=== PATIENT | female | born 1935 | race Caucasian/White ===

== ENCOUNTER → 2018-05-17 | Outpatient (CLI) | payer OTHER, SELFPAY ==
[~2018-05-17] MED LIST: ASPI325EC PO; FELO5CR PO; HYDACE5 PO; IBUP800 PO; LISI5 PO; OMEP20ER PO
[2018-05-18 13:57] LABS: Adenovirus F 40/41 Not Detected (NOT DETECT); Astrovirus Not Detected (NOT DETECT); Campylobacter Sp Not Detected (NOT DETECT); Cryptosporidium Not Detected (NOT DETECT); Cyclospora Cayetanensis Not Detected (NOT DETECT); E. Coli O157 Not Detected (NOT DETECT); Entamoeba Histolytica Not Detected (NOT DETECT); Enteroaggregative E. coli-EAEC Not Detected (NOT DETECT); Enteropathogenic E. coli-EPEC Not Detected (NOT DETECT); Enterotoxigenic E. coli-ETEC Not Detected (NOT DETECT); Giardia Lamblia Not Detected (NOT DETECT); Norovirus GI/GII Not Detected (NOT DETECT); Plesiomonas Shigelloides Not Detected (NOT DETECT); Rotavirus A Not Detected (NOT DETECT); Salmonella Sp Not Detected (NOT DETECT); Sapovirus Not Detected (NOT DETECT); Shiga Toxin-prod E. coli-STEC Not Detected (NOT DETECT); Shigella/Enteroin E. coli-EIEC Not Detected (NOT DETECT); Vibrio Cholerae Not Detected (NOT DETECT); Vibrio Sp Not Detected (NOT DETECT); Yersinia Enterocolitica Not Detected (NOT DETECT)
== END | disposition home or self-care (01) ==
LOC: LAB 11:49 → LAB SHORT 11:49 → LAB FUT 05-14 15:20
PROVIDERS: Hospitalist
DX: R19.7 Diarrhea, unspecified (principal)
CPT/HCPCS: 87507

== ENCOUNTER → 2018-06-01 | Outpatient (CLI) | payer OTHER, SELFPAY ==
[2018-06-01 14:38] LABS: Bun/Creatinine Ratio 20.1 (12.0-20.0); Calcium, Blood 8.7 mg/dL (8.5-10.1); Creatinine, Blood 0.95 mg/dL (0.40-1.00)
== END | disposition home or self-care (01) ==
LOC: LAB SHORT 13:16 → LAB 13:16
PROVIDERS: Hospitalist
DX: E87.6 Hypokalemia (principal)
CPT/HCPCS: 80048; 83735

== ENCOUNTER → 2020-08-03 | Outpatient (CLI) | payer MEDICARE ==
[~2020-08-03] MED LIST changes: +AMLO10 PO; +ATOR40TA PO; +Acetaminophen325 M1 PO; +CATAPRES0.1 MG PO; -FELO5CR PO; +Felodipine ER5 MG PO; +HYDCHL25 PO; +HYDRA25; +Lopressor 50 mg50 MG PO; +Nicoderm Cq1 EAC1 TOP; +PANT40 PO; +Plavix75 MG PO; +SODBIC650 PO
[2020-08-03 14:54] LABS: BASOPHILS ABSOLUTE AUTO 0.07 K/mm3 (0.00-0.23); BASOPHILS PERCENT AUTO 1 % (0-2); EOSINOPHILS ABSOLUTE AUTO 0.23 K/mm3 (0.00-0.68); EOSINOPHILS PERCENT AUTO 3 % (0-6); Hematocrit 38.8 % (33.0-51.0); Hemoglobin 12.4 g/dL (11.5-16.0); IMMATURE GRAN ABSOLUTE AUTO 0.04 K/mm3 (0.00-0.10); IMMATURE GRAN PERCENT AUTO 1 % (0-1); LYMPHOCYTES ABSOLUTE AUTO 2.58 K/mm3 (0.84-5.20); LYMPHOCYTES PERCENT AUTO 33 % (21-46); MONOCYTES ABSOLUTE AUTO 0.41 K/mm3 (0.16-1.47); MONOCYTES PERCENT AUTO 5 % (4-13); Mean Corpuscular HGB 30.5 pg (26.0-34.0); Mean Corpuscular Volume 95 fL (80-100); Mean Platelet Volume 10.2 fL (9.1-12.4); NEUTROPHILS ABSOLUTE AUTO 4.49 K/mm3 (1.96-9.15); NEUTROPHILS PERCENT AUTO 58 % (41-73); Platelet Count 316 K/mm3 (150-400); RDW Coefficient Variation 14.7 % (11.7-14.2); RDW Standard Deviation 51.4 fL (35.1-46.3); Red Blood Cell Count 4.07 M/mm3 (3.80-5.20); White Blood Cell Count 7.82 K/mm3 (4.00-11.30)
[2020-08-03 17:00] LABS: Albumin, Blood 3.6 g/dL (3.4-5.0); Albumin/Globulin Ratio 0.7 (0.8-1.8); Bilirubin, Total 0.2 mg/dL (0.1-1.0); Bun/Creatinine Ratio 18.5 (12.0-20.0); Calcium, Blood 8.9 mg/dL (8.5-10.1); Creatinine, Blood 1.08 mg/dL (0.40-1.00); Globulin, Blood 5.1 g/dL (2.2-4.0); Potassium, Blood 4.3 mmol/L (3.5-5.5); Total Protein, Blood 8.7 g/dL (6.4-8.2)
== END | disposition home or self-care (01) ==
LOC: LAB 13:46 → LAB SHORT 13:46
PROVIDERS: Hospitalist
DX: I12.9 Hypertensive chronic kidney disease with stage 1 through stage 4 chronic kidney disease, or unspecified chronic kidney disease (principal); N18.9 Chronic kidney disease, unspecified; N39.41 Urge incontinence
CPT/HCPCS: 80053; 83970; 85025; 87086; 87147

== ENCOUNTER 2020-08-24 09:19 | Day surgery (SDC) | payer MEDICARE ==
[~2020-08-24] VITALS: Ht 152.4 cm; Wt 57.6 kg
[~2020-08-24 09:19] MED LIST changes: -AMLO10 PO; -ATOR40TA PO; -Acetaminophen325 M1 PO; -HYDRA25; -Lopressor 50 mg50 MG PO; -Nicoderm Cq1 EAC1 TOP; -Plavix75 MG PO; -SODBIC650 PO
--- NOTE | 2020-08-24 10:17 | NUR ---
PATIENT ARRIVED TO THE [facility] AND TOLD THE RN THAT SHE FELL IN THE BARK OFF THE SIDEWALK ON HER WAY IN THIS MORNING. HER FELL ON HER LEFT ARM. JACKET WAS CLEANED OF BARK PIECES. GUARDING LEFT ARM. PATIENT STATED SHE DID NOT HIT HER HEAD.
--- NOTE | 2020-08-24 14:39 | NUR ---
PATIENT RETURNED FROM THE [facility] WITH BILATERAL GROIN ACCESSES CLOSED WITH ANGIOSEALS. LEFT RADIAL ACCESS CLOSED WITH TR BAND WTH 15 ML OF AIR IN PLACE AND A SECOND TR BAND WITH 10 ML OF AIR IN PLACE. PLETH TO THE LEFT RADIAL + WITH GOO WAVEFORM. PATIENT PLACED ON THE MONITOR AND CALL LIGHT IN REACH. VVS. AWAKES WITH MINIMAL STIMULATION. DOPPLER PULSES NOTED TO ALL EXCEPT THE LEFT DP. DR. TENORIO WILL UPDATE SON VIA PHONE.
--- NOTE | 2020-08-24 15:21 | NUR ---
PATIENT ASSISTED TO THE RIGHT SIDE WITH PILLOW SUPPORT BEHIND BACKA DN BETWEEN LEG. GROIN AREAS STRAIGHT AND LEFT WRIST STRAIGHT. CONTINUE TO MONITOR SITES AND VS WHILE PATIENT IS SLEEPING. NO C/O PAIN. CALL LIGHT IN REACH.
--- NOTE | 2020-08-24 15:46 | NUR ---
CALLED AND LEFT A MESSAGE WITH THE SON, JEFFERSON THAT THE PAITENT LIVES WITH. TO HAVE HIM CALL OR COME TO THE BEDSIDE FOR DR. TENORIO TO SPEAK WITH.
--- NOTE | 2020-08-24 16:31 | NUR ---
patient resting in bed . right and left femoral sites soft and nontender dressings D&I. There are [address] to left wristand forearm. sites stable.
--- NOTE | 2020-08-24 16:41 | NUR ---
right and left groin sites stable. removed 2 cc of air from each TR band to total a 7 cc air out from each. sites remain soft, no swelling, no hematoma.
--- NOTE | 2020-08-24 17:05 | NUR ---
dR Gerber HERE TO SPEAK TO PATIENT AND PATIEN'S SON
--- NOTE | 2020-08-24 17:34 | NUR ---
patient ambulated to rest room. tolerated well. voided x 1. bilateral groin sites remain stable. TR bands in place. 3 cc air removed from each
--- NOTE | 2020-08-24 17:40 | NUR ---
CONITUE TO REMOVE AIR FROM tr BAND. SITES CONTINUE TO BE STABLE.
--- NOTE | 2020-08-24 18:29 | NUR ---
PATIENT VERBALIZED UNDERSTANDING OF DISCHARGE INSTRUCTIONS AND PRECAUTIONS. HAS BEEN SITTING UP IN CHAIR AND BILATERAL GROIN SITES STABLE. DRESSINGS DRY AND INTACT. AIR HAS BEEN REMOVED FROM TR BANDS. IV SITE DCED WITH CATHETER INTACT. TR BANDS REMOVED LEFT RADIAL SITE WITHOUT SWELLING OR BLEEDING. CLOTH DOT AND LIGHT DRESSING APPLIED. WRIST BOARD PLACED TO LEFT WRIST. ARM SLING PLACED TO LEFT ARM. PATIENT TAKEN TO WAITING CAR VIA WHEELCAHIR. DISCHARGE INSTRUCTIONS AND PRECAUTIONS REVIEWED WITH SON. LEFT RADIAL DRESSING SITE REVIEWED WITH SON.
== END 2020-08-24 23:46 | disposition home or self-care (01) ==
LOC: MHTC 09:19
DX: I70.213 Atherosclerosis of native arteries of extremities with intermittent claudication, bilateral legs (principal); Z20.822 Contact with and (suspected) exposure to COVID-19
CPT/HCPCS: 36140; 37221; 75625; 75716; 76937; 99152; 99153; C1760; C1769; C1876; C1887; C1894; J1644; J2250; J3010; J7030; J7040; J7050; Q9967

== ENCOUNTER 2020-08-30 11:22 | Inpatient (IN) | payer MEDICARE ==
[~2020-08-30] VITALS: Ht 152.4 cm; Wt 57.7 kg
[2020-08-30 12:06] LABS: BASOPHILS ABSOLUTE AUTO 0.06 K/mm3 (0.00-0.23); BASOPHILS PERCENT AUTO 1 % (0-2); EOSINOPHILS ABSOLUTE AUTO 0.24 K/mm3 (0.00-0.68); EOSINOPHILS PERCENT AUTO 3 % (0-6); Hematocrit 32.1 % (33.0-51.0); Hemoglobin 10.5 g/dL (11.5-16.0); IMMATURE GRAN ABSOLUTE AUTO 0.03 K/mm3 (0.00-0.10); IMMATURE GRAN PERCENT AUTO 0 % (0-1); LYMPHOCYTES PERCENT AUTO 20 % (21-46); MONOCYTES ABSOLUTE AUTO 0.57 K/mm3 (0.16-1.47); MONOCYTES PERCENT AUTO 8 % (4-13); Mean Corpuscular HGB 30.8 pg (26.0-34.0); Mean Corpuscular HGB Conc 32.7 g/dL (31.5-36.5); Mean Corpuscular Volume 94 fL (80-100); Mean Platelet Volume 10.5 fL (9.1-12.4); NEUTROPHILS ABSOLUTE AUTO 5.13 K/mm3 (1.96-9.15); NEUTROPHILS PERCENT AUTO 68 % (41-73); Platelet Count 212 K/mm3 (150-400); RDW Coefficient Variation 14.6 % (11.7-14.2); RDW Standard Deviation 49.9 fL (35.1-46.3); Red Blood Cell Count 3.41 M/mm3 (3.80-5.20); White Blood Cell Count 7.53 K/mm3 (4.00-11.30)
[2020-08-30 12:26] LABS: Alanine Aminotransfer (ALT/SGP 13 U/L (12-78); Albumin, Blood 3.1 g/dL (3.4-5.0); Albumin/Globulin Ratio 0.6 (0.8-1.8); Alk Phos 78 U/L (50-136); Anion Gap 10 mmol/L (6-16); Aspartate Aminotrans (AST/SGOT 13 U/L (12-37); Bilirubin, Total 0.3 mg/dL (0.1-1.0); Blood Urea Nitrogen 23 mg/dL (8-24); Bun/Creatinine Ratio 19.8 (12.0-20.0); CO2, Blood 17 mmol/L (21-32); Calcium, Blood 7.8 mg/dL (8.5-10.1); Chloride, Blood 111 mmol/L (98-108); Creatinine, Blood 1.16 mg/dL (0.40-1.00); Ethanol (Alcohol), Blood, Med <3 mg/dL; Globulin, Blood 4.8 g/dL (2.2-4.0); Glomerular Filtration Rate 47 (60-); Glucose, Blood 120 mg/dL (70-99); Potassium, Blood 3.1 mmol/L (3.5-5.5); Sodium, Blood 138 mmol/L (136-145); Total Protein, Blood 7.9 g/dL (6.4-8.2)
[2020-08-30 15:21] LABS: International Normalized Ratio 1.01; Prothrombin Time Results 10.9 Sec (9.7-11.5)
--- NOTE | 2020-08-30 17:27 | NUR ---
Echocardiogram performed by Roz Mercado under my supervision.
--- NOTE | 2020-08-30 17:28 | NUR ---
DR SOTO NOTIFIED OF BP OF 201/64, NEW ORDERS IN PLACE, WILL MEDICATE PER EMAR SOON RELEASED FROM PHARMACY
--- NOTE | 2020-08-30 18:36 | NUR ---
SHIFT SUMMARY PT AXO, PLEASANT AND COOPERATIVE WITH CARE. ADMIT THIS SHIFT. BP NOTED, SEE PRIOR NOTE. PT MEDICATED FOR BP, 177/60 AT THIS TIME. RUNNING NORMAL SINUS RHYTHM AT THIS TIME PER MOLDER MACHINE. IV PATENT AND SALINE LOCKED. PT SITTING UP IN BED EATING DINNER AT THIS TIME. BED IN LOW POSITION, CALL LIGHT WITHIN REACH. BED ALARM ON.
--- NOTE | 2020-08-30 19:00 | NUR ---
ASSUMED CARE RECEIVED REPORT FROM ROLANDO OLIVIA. PT RESTING, IN NAD. NO ACUTE NEEDS ASSESSED AT THIS TIME. CALL LIGHT, POSSESIONS IN REACH, BED IN LOW POSITION WITH ALARMS ON.
--- NOTE | 2020-08-30 22:05 | NUR ---
SPOKE TO DR. MURPHY TO CLARIFY EXISTING HYDRALAZINE ORDERS; NEW ORDERS RECEIVED.
--- NOTE | 2020-08-30 23:00 | NUR ---
SPOKE TO DR. MURPHY REGARDING PT'S UNCONTROLLED HTN. ORDERS RECEIVED.
[2020-08-31 05:27] LABS: BASOPHILS ABSOLUTE AUTO 0.07 K/mm3 (0.00-0.23); BASOPHILS PERCENT AUTO 1 % (0-2); EOSINOPHILS ABSOLUTE AUTO 0.34 K/mm3 (0.00-0.68); EOSINOPHILS PERCENT AUTO 5 % (0-6); Hematocrit 29.5 % (33.0-51.0); Hemoglobin 9.8 g/dL (11.5-16.0); IMMATURE GRAN ABSOLUTE AUTO 0.03 K/mm3 (0.00-0.10); IMMATURE GRAN PERCENT AUTO 0 % (0-1); LYMPHOCYTES ABSOLUTE AUTO 1.88 K/mm3 (0.84-5.20); LYMPHOCYTES PERCENT AUTO 26 % (21-46); MONOCYTES ABSOLUTE AUTO 0.56 K/mm3 (0.16-1.47); MONOCYTES PERCENT AUTO 8 % (4-13); Mean Corpuscular HGB 30.4 pg (26.0-34.0); Mean Corpuscular HGB Conc 33.2 g/dL (31.5-36.5); Mean Corpuscular Volume 92 fL (80-100); Mean Platelet Volume 10.5 fL (9.1-12.4); NEUTROPHILS ABSOLUTE AUTO 4.38 K/mm3 (1.96-9.15); NEUTROPHILS PERCENT AUTO 60 % (41-73); Platelet Count 246 K/mm3 (150-400); RDW Coefficient Variation 14.6 % (11.7-14.2); RDW Standard Deviation 48.6 fL (35.1-46.3); Red Blood Cell Count 3.22 M/mm3 (3.80-5.20); White Blood Cell Count 7.26 K/mm3 (4.00-11.30)
--- NOTE | 2020-08-31 05:45 | NUR ---
SOLDERING MACHINE SETTER SUMMARY PT RESTING, IN NAD. VS REVIEWED, PT HYPERTENSIVE, OTHER VS WNL. PRNs GIVEN ORDERED FOR SBP >160 AND > 180; WITH GOOD RESULTS. PT HAS BEEN SLEEPING THROUGHOUT MUCH OF THE NIGHT. NO FURTHER CHANGES IN NEURO STATUS NOTED FROM INITIAL ASSESSMENT, PT DENIES LEONG, NUMBNESS/TINGLING. PT UP TO BS AND PARTIAL BED BATH GIVEN THIS AM, PT TOLERATED WELL. NO CARDIAC EVENTS REPORTED OVERNIGHT, NO OTHER ACUTE CHANGES IN CONDITION NOTED. PT DENIES PAIN OR NEEDS AT THIS TIME. CALL LIGHT, POSSESSIONS IN REACH, BED IN LOW AND LOCKED POSITION WITH ALARMS ON. WILL CONTINUE TO PROVIDE CARE NEEDED UNTIL REPORT GIVEN TO ONCOMING RN.
[2020-08-31 05:54] LABS: Albumin, Blood 2.8 g/dL (3.4-5.0); Albumin/Globulin Ratio 0.6 (0.8-1.8); Bilirubin, Total 0.3 mg/dL (0.1-1.0); Bun/Creatinine Ratio 20.2 (12.0-20.0); Calcium, Blood 8.1 mg/dL (8.5-10.1); Creatinine, Blood 1.19 mg/dL (0.40-1.00); Globulin, Blood 4.4 g/dL (2.2-4.0); Potassium, Blood 3.8 mmol/L (3.5-5.5); Total Protein, Blood 7.2 g/dL (6.4-8.2)
[2020-08-31 11:18] LABS: Percent Saturation 20.5 % (15.0-50.0)
--- NOTE | 2020-08-31 16:57 | NUR ---
SHIFT SUMMARY PT A/O X3; PLEASANT AND COOPERATIVE WITH CARE. PT EXPERIENCES VERY SLIGHT L SIDE WEAKNESS DUE TO A STROKE. PT IS UNABLE TO SEE OBJECTS IN HER LEFT VISUAL FIELD WELL. WORKED WITH P.T/O.T./SPEECH TODAY. SPEECH RECOMMENDED NPO FOLLOWING A SWALLOW EVAL AND WILL RE-EVALUATE TOMORROW. PT HYPERTENSIVE AND TREATED X2 PER EMR. BEEN RESTING COMFORTABLY IN BED FOR THE MAJORITY OF THE DAY. CALL LIGHT IN REACH.
--- NOTE | 2020-08-31 19:00 | NUR ---
ASSUMED CARE RECEIVED REPORT FROM ROLANDO RAMÍREZ. PT ASLEEP, IN NAD, AROUSABLE TO VERBAL STIMULI. NO ACUTE NEEDS ASSESSED AT THIS TIME. CALL LIGHT, POSSESSIONS IN REACH, BED IN LOW POSITION WITH ALARMS ON.
--- NOTE | 2020-08-31 21:24 | NUR ---
SPOKE TO SUMAYA LY REGARDING PT'S HTN AND NEED FOR NICOTINE REPLACEMENT. ORDERS RECEIVED.
--- NOTE | 2020-09-01 06:14 | NUR ---
KEY MAKER SUMMARY PT ASLEEP, IN NAD. VS REVIEWED, BP'S STABLE S/P ADMINISTRATION OF PRN LABETALOL. OTHER VS WNL. PT HAS BEEN SLEEPING T/O NIGHT, NO ACUTE CHANGES IN NEURO STATUS TO REPORT FROM SHIFT ASSESSMENT. NO C/O LEONG, NUMBNESS/TINGLING, NO FACIAL DROOP NOTED, SPEECH REMAINS WNL. NO CARDIAC EVENTS REPORTED; NO ACUTE EVENTS OVERNIGHT. DENIES NEEDS AT THIS TIME. CALL LIGHT, POSSESIONS IN REACH, BED IN LOW AND LOCKED POSITION WITH ALARMS ON. WILL CONTINUE TO PROVIDE CARE UNTIL REPORT GIVEN TO ONCOMING RN.
--- NOTE | 2020-09-01 18:46 | NUR ---
SHIFT SUMMARY PT ABLE TO MAKE NEEDS KNONW. PT ACCEPTING OF CARE. PT HAS HAD ELEVATED BP THROUGH OUT SHIFT. NOTIFIED OF THEM AND MADE CHANGES TO PT EMAR. SHE HAD PT HAD PRN HYDRALAZINE ONE TIME AND LABETALOL ONE TIME THIS SHIFT. SPEECH EVAL AND DIET ORDER CHANGED AND ABLE TO TAKE MEDS CRUSHED IN APPLESAUCE, NECATR THICK FLUIDS. PT 1 PERSON TRANSFER WITH FWW AND GAIT BELT. SHE IS CURENTLY SITTING IN CHAIR WATCHING TV.
--- NOTE | 2020-09-02 05:47 | NUR ---
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 She was able to sit up in chair for several hours & maintain position. She has harsh coarse cough nonproductive & has sats greater than 90% on room air. Uses home nebs tid.Has pacemaker since 2004 with functin checked every 6 months unknown rate or function. She had fall prior to admit & has lt arm edema & tenderness. Good air sealing technician & movement. on tele monitor SR. Hypertensive with prn IV rx given at beginning & end of shift with helpful effect. PT has poor dentation missing multiple teeth. aspiration precautions honey thick liquids.
--- NOTE | 2020-09-02 16:30 | NUR ---
SHIFT SUMMARY PATIENT DENIES PAIN, NAUSEA, AND SHORTNESS OF BREATH. PATIENT HAS OCCASSIONAL COUGH. SPEECH THERAPY ADVANCED PAT[facility], THIN LIQUIDS, NO STRAWS. PATIENT WORKED WITH PT, UP ONE ASSIST W/FWW TO BR OR BSC. PATIENT HAD SEVERAL LOOSE STOOLS THIS SHIFT BUT REPORTS THIS HAS BEEN A CHRONIC ISSUE FOR HER. EATING AND DRINKING WELL.
--- NOTE | 2020-09-03 04:39 | NUR ---
SHIFT SUMMARY PT HAS RESTED MOST OF THE NIGHT. SHE HAS DENIED NEEDS WHEN ASKED, PT MEDICATED FOR HYPERTENSION. NO NEURO CHANGES THIS SHIFT. TELE IN PLACE WITH NSR. PT A/OX4, PLESANT AND COOPERATIVE WITH CARE. NO ACUTE CHANGES, BED IN LOWEST POSITION, CALL LIGHT WITHIN REACH.
--- NOTE | 2020-09-03 14:10 | NUR ---
PATIENT TRANSFERED FROM 344 TO ROOM 304 VIA W/C, REPORT RECEIVED FROM ROLANDO PATEL. PATIENT ORIENTED TO ROOM AND USE OF CALL LIGHT. FALL PRECAUTIONS IN PLACE. ABLE TO TRANSFER FROM W/C TO BED, REQUIRES MANY QUES. L SIDED WEAKNESS WITH L SIDE NEGLECT VISUALLY. HYDRALAZINE AND LEBETOLOL PRN TO CONTROL B/P. INSTRUCTED TO USE CALL LIGHT FOR ASSISTANCE.
--- NOTE | 2020-09-03 19:45 | NUR ---
LABETOLO 20MG IV PRN RECIEVED FOR BP 208/69. WILL MONITOR FOR EFFECT.
[2020-09-04 04:45] LABS: Bun/Creatinine Ratio 23.7 (12.0-20.0); Creatinine, Blood 1.39 mg/dL (0.40-1.00); Potassium, Blood 4.4 mmol/L (3.5-5.5)
--- NOTE | 2020-09-04 04:49 | NUR ---
HYDRALAZINE 20MG IV PRN RECIEVED FOR BP 207/67, WILL MONITOR FOR EFFECT.
--- NOTE | 2020-09-04 06:40 | NUR ---
SUMMARY: PT A/OX3 W/BED ALARM ON FOR OCCASIONAL IMPULSIVITY. 1PA W/FWW TO BSC TO VOID AND PT REQUIRES LOTS OF VERBAL Q'S D/T L.SIDE DEFECIT AND VISUAL FIELD DISTURBANCES POST CVA, FALL PREC'S IN PLACE. LABETOLOL AND HYDRALAZINE IV PRN RECIEVED FOR SBP>200'S FOR SOME IMPROVEMENT IN BP. SHE REMAINS HYPERTENSIVE THOUGH W/SBP>160 T/O NOCTE. PT NSR AT 60'S BPM W/PM NOTED ON TELEMETRY. NO ACUTE CHANGES, VSS AND AFEBRILE. SHE DENIED PAIN AND ALL OTHER S/S DISTRESS. WCTM/REPORT TO DAY RN.
--- NOTE | 2020-09-04 13:26 | NUR ---
Met with pt this morning; she was sitting in a chair beside the bed, but had fallen asleep and was leaning over to the left side. She awakened easily, and requested to return to bed, stating she feels cold. Assisted her from chair to bed and covered her with a warm blanket. We discussed her hosptialization and plans afterward. She reports she is planning on going to SNF for therapy upon leaving the hospital, before returning home. We also discussed code status, and the different choices. She currently has chosen full code status, but is interested in discussing the differences between the various choices. She states she will think about it all, and requests I return this afternoon, which I will happily do.
--- NOTE | 2020-09-04 16:15 | NUR ---
Returned to see pt this afternoon while her daughter Mine was visiting. She and pt were both willing to review current code status together, and pt decided on changing her code status to DNR with limited interventions. Her daughter is in agreement with this. Pt then opted to lay back down. I assisted her with this, and got her another warm blanket.
--- NOTE | 2020-09-04 18:02 | NUR ---
SHIFT SUMMARY PATIENT DENIES PAIN, NAUSEA, AND SHORTNESS OF BREATH. PATIENT UP ONE ASSIST W/GAIT BELT AND FWW. PATIENT WORKED WITH PT AND OT TODAY. PATIENT CONTINUES TO HAVE SOME VISUAL FIELD DISTURBANCE ON THE LEFT SIDE. PLEASANT AND COOPERATIVE WITH CARE. DAUGHTER VISITED IN AFTERNOON.
[2020-09-05 04:45] LABS: BASOPHILS ABSOLUTE AUTO 0.06 K/mm3 (0.00-0.23); BASOPHILS PERCENT AUTO 1 % (0-2); EOSINOPHILS ABSOLUTE AUTO 0.19 K/mm3 (0.00-0.68); EOSINOPHILS PERCENT AUTO 2 % (0-6); Hematocrit 30.3 % (33.0-51.0); Hemoglobin 9.9 g/dL (11.5-16.0); IMMATURE GRAN ABSOLUTE AUTO 0.04 K/mm3 (0.00-0.10); IMMATURE GRAN PERCENT AUTO 0 % (0-1); LYMPHOCYTES ABSOLUTE AUTO 1.71 K/mm3 (0.84-5.20); LYMPHOCYTES PERCENT AUTO 16 % (21-46); MONOCYTES ABSOLUTE AUTO 0.96 K/mm3 (0.16-1.47); MONOCYTES PERCENT AUTO 9 % (4-13); Mean Corpuscular HGB Conc 32.7 g/dL (31.5-36.5); Mean Corpuscular Volume 95 fL (80-100); Mean Platelet Volume 10.1 fL (9.1-12.4); NEUTROPHILS ABSOLUTE AUTO 8.06 K/mm3 (1.96-9.15); NEUTROPHILS PERCENT AUTO 73 % (41-73); Platelet Count 286 K/mm3 (150-400); RDW Coefficient Variation 15.3 % (11.7-14.2); RDW Standard Deviation 53.1 fL (35.1-46.3); Red Blood Cell Count 3.19 M/mm3 (3.80-5.20); White Blood Cell Count 11.02 K/mm3 (4.00-11.30)
[2020-09-05 05:07] LABS: Bun/Creatinine Ratio 22.9 (12.0-20.0); Calcium, Blood 7.9 mg/dL (8.5-10.1); Creatinine, Blood 1.92 mg/dL (0.40-1.00); Potassium, Blood 4.6 mmol/L (3.5-5.5)
--- NOTE | 2020-09-05 06:08 | NUR ---
SHIFT SUMMARY ALERT, ABLE TO MAKE NEEDS KNOWN. COOPERATIVE WITH CARE. ANSWERS QUESTIONS APPROPRIATELY. NO C/O PAIN/DISCOMFORT. 1 EPISODE OF LOOSE STOOLS OVERNIGHT. NO C/O PAIN/DISCOMFORT. TELE REMAINS PACED AT 60. NO OTHER ACUTE CHANGES NOTED OVERNIGHT. REMAINS HYPERTENSIVE. ALL OTHER VS WNL. BED IN LOWEST POSITION; ALARM ON. CALL LIGHT AND BELONGINGS WITHIN REACH. CONTINUE WITH CURRENT PLAN OF CARE. REPORT TO ONCOMING RN.
[2020-09-05 08:14] LABS: Thyroid Stimulating Hormone 6.27 uIU/mL (0.360-4.800); Uric Acid, Blood 6.6 mg/dL (2.6-6.0)
--- NOTE | 2020-09-05 13:08 | NUR ---
WEAKNESS/GAZING TO RIGHT THIS RN DISCUSSED WITH DR. MURPHY A CHANGE IN PT'S CONDITION WITH INCREASED LEFT SIDED WEAKNESS AND GAZING TO THE RIGHT MORE AND UNABLE TO SEE ANYTHING ON LEFT. SHIRA, OCCUPATIONAL THERAPIST ALSO SAW THIS PT AND REPORTS PT IS VERY DIFFERENT FROM YESTERDAY AND MUCH WEAKER AND DIFFICULT TO DIRECT. THIS INFORMATION WAS GIVEN TO DR. MURPHY. ORDERS FOR A CT OF HEAD W/O CONTRAST ORDERED. WILL CONTINUE TO MONITOR.
--- NOTE | 2020-09-05 16:20 | NUR ---
URINARY RETENTION/TEMP BLADDER SCAN WAS DONE AND 425 ML FOUND IN BLADDER. PT TRIED TO VOID BUT UNABLE TO. THIS RN DISCUSSED WITH DR. MURPHY AND OR A VERBAL ORDER WAS GIVEN FOR INDWELLING VALE CATHETER. DR. MURPHY ALSO AWARE OF PT'S TEMPERATURE. TYLENOL ADMINISTERED RECTALLY FOR TEMP AND PAIN. WILL CONTINUE TO MONITOR.
[2020-09-05 18:19] LABS: Appearance, Urine Clear (Clear); Bilirubin, Urine Neg (Neg); Blood, Urine 1+ (Neg); Color, Urine Yellow (P-Yellow); Glucose Qualitative, Urine Neg (Neg); Ketones, Urine Neg (Neg); Leukocyte Esterase, Urine 2+ (Neg); Nitrite, Urine Neg (Neg); Protein, Urine 1+ (Neg); Specific Gravity, Urine 1.015 (1.003-1.022); Urobilinogen, Urine NORM (Normal)
--- NOTE | 2020-09-05 18:34 | NUR ---
SHIFT SUMMARY PT HAS BEEN VERY SLEEPY THIS SHIFT. PT HAS HAD INCREASED WEAKNESS SINCE THIS AM. SHE IS ORIENTED X3 BUT HAS DIFFICULTY FOLLOWING DIRECTION. VALE WAS PLACED THIS EVENING FOR URINARY RETENTION AND URINE WAS SENT. TYLENOL ADMINISTERED RECTALLY FOR TEMPERATURE AND PAIN. IVF INFUSING PER DR. ROBLES'S ORDERS. IV HYDRALAZINE GIVEN FOR SBP GREATER THAN 160. PT UNABLE TO HAVE PO MEDICATIONS AT THIS TIME DUE TO RISK FOR ASPIRATION FROM BEING TOO SLEEPY. WILL CONTINUE TO MONITOR AND REPORT TO ONCOMING RN.
[2020-09-05 18:56] LABS: Amorphous Light (0-Heavy); Bacteria Few /hpf; Granular Casts 0-2 /lpf (0); Hyaline Casts 0-2 /lpf (0-2); Mucus Light (0-Heavy); Squamous Epithelial Cells Rare /hpf (Few)
--- NOTE | 2020-09-06 04:46 | NUR ---
BAKESHOP CLEANER SUMMARY PT HAS SLEPT MOST OF THE SHIFT BUT DOES WAKE UP TO SOUND/TOUCH. PT WAS ABLE TO HAVE CONVERSATION WITH THIS RN AND KNEW THE YEAR, CURRENT PRESIDENT, CITY, STATE, AND HER . ASSESSED SWALLOW ABILITY WITH SMALL AMOUNT OF APPLESAUCE AND PT TOLERATED WELL WITH NO ISSUES. GAVE BEDTIME MEDS ONE AT A TIME WITH APPLESAUCE AND PT DID WELL. HYPERTENSIVE AT BEDTIME BUT WAS ABLE TO TAKE SCHEDULED BP MEDS AND SBP 150'S THIS AM. VALE CATH DRAINING DARK YELLOW URINE. WILL CONTINUE TO MONITOR.
[2020-09-06 04:47] LABS: BASOPHILS ABSOLUTE AUTO 0.05 K/mm3 (0.00-0.23); BASOPHILS PERCENT AUTO 1 % (0-2); EOSINOPHILS ABSOLUTE AUTO 0.12 K/mm3 (0.00-0.68); EOSINOPHILS PERCENT AUTO 1 % (0-6); Hematocrit 28.6 % (33.0-51.0); Hemoglobin 9.3 g/dL (11.5-16.0); IMMATURE GRAN ABSOLUTE AUTO 0.05 K/mm3 (0.00-0.10); IMMATURE GRAN PERCENT AUTO 1 % (0-1); LYMPHOCYTES ABSOLUTE AUTO 1.31 K/mm3 (0.84-5.20); LYMPHOCYTES PERCENT AUTO 15 % (21-46); MONOCYTES ABSOLUTE AUTO 0.72 K/mm3 (0.16-1.47); MONOCYTES PERCENT AUTO 8 % (4-13); Mean Corpuscular HGB 30.7 pg (26.0-34.0); Mean Corpuscular HGB Conc 32.5 g/dL (31.5-36.5); Mean Corpuscular Volume 94 fL (80-100); NEUTROPHILS ABSOLUTE AUTO 6.42 K/mm3 (1.96-9.15); NEUTROPHILS PERCENT AUTO 74 % (41-73); Platelet Count 255 K/mm3 (150-400); RDW Coefficient Variation 15.2 % (11.7-14.2); RDW Standard Deviation 53.1 fL (35.1-46.3); Red Blood Cell Count 3.03 M/mm3 (3.80-5.20); White Blood Cell Count 8.67 K/mm3 (4.00-11.30)
[2020-09-06 05:03] LABS: Bun/Creatinine Ratio 24.4 (12.0-20.0); Calcium, Blood 7.8 mg/dL (8.5-10.1); Creatinine, Blood 1.93 mg/dL (0.40-1.00); Potassium, Blood 4.3 mmol/L (3.5-5.5)
--- NOTE | 2020-09-06 18:20 | NUR ---
SHIFT SUMMARY PT HAS BEEN MORE AWAKE THIS SHIFT. PT HAS HAD A GOOD APPETITE WITH FEEDING PT. PT CONTINUES TO HAVE SIGNIFICANT WEAKNESS IN LEFT ARM/HAND. PT UNABLE TO ECONOMIC CONSULTANT/SQUEEZE WITH LEFT HAND. PT MODERATE TO MAX ASSIST WHEN GETTING UP TO BSC. PT HAS HAD A GOOD APPETITE WITH STAFF FEEDING HER. NO COMPLAINTS THIS SHIFT. NO ACUTE CHANGES. WILL CONTINUE TO MONITOR AND REPORT TO ONCOMING RN. CALL LIGHT IN REACH.
--- NOTE | 2020-09-07 05:25 | NUR ---
SIGNAL OPERATOR SUMMARY NO ACUTE CHANGES THIS SHIFT. PT AAOX4 AND VERY PLEASANT. MORE AWAKE COMPARED TO PREVIOUS NIGHT. ABLE TO TAKE MEDS EASILY WITH APPLESAUCE. STILL WITH LEFT SIDED DEFECITS, MAINLY IN L ARM. ABLE TO RAISE ARM UP BUT HAS VERY LITTLE USE OF L HAND. VALE CATH DRAINING DARK YELLOW URINE. PT DENIES SOB, N/V, CP. VSS, WILL CONTINUE TO MONITOR.
[2020-09-07 07:30] LABS: Albumin, Blood 2.4 g/dL (3.4-5.0); Anion Gap 7 mmol/L (6-16); Blood Urea Nitrogen 45 mg/dL (8-24); CO2, Blood 17 mmol/L (21-32); Calcium, Blood 7.8 mg/dL (8.5-10.1); Chloride, Blood 114 mmol/L (98-108); Creatinine, Blood 1.55 mg/dL (0.40-1.00); Glomerular Filtration Rate 34 (60-); Glucose, Blood 89 mg/dL (70-99); Phosphorus, Blood 3.9 mg/dL (2.5-4.9); Potassium, Blood 4.4 mmol/L (3.5-5.5); Sodium, Blood 138 mmol/L (136-145)
[2020-09-07 12:11] LABS: SARS-Cov-2 (COVID-19) PCR, MMC NEGATIVE (NEGATIVE)
[2020-09-07] MEDS ORDERED: AMLO10 PO (12:44)
[2020-09-07] MEDS ORDERED: Acetaminophen325 M1 PO (12:46)
[2020-09-07] MEDS ORDERED: ATOR40TA PO (12:47)
[2020-09-07] MEDS ORDERED: Plavix75 MG PO (12:47)
[2020-09-07] MEDS ORDERED: HYDRA25 (12:47)
[2020-09-07] MEDS ORDERED: Lopressor 50 mg50 MG PO (12:48)
[2020-09-07] MEDS ORDERED: SODBIC650 PO (12:49)
[2020-09-07] MEDS ORDERED: Nicoderm Cq1 EAC1 TOP (12:49)
--- NOTE | 2020-09-07 15:17 | NUR ---
BLADDER SCAN THIS RN NOTIFIED DR. MURPHY THAT PT HAD 40 ML IN BLADDER WHEN BLADDER SCANNED AND VALE WAS REMOVED 3.5 HOURS EARLIER. NO NEW ORDERS AT THIS TIME. WILL CONTINUE TO MONITOR. CALL LIGHT IN REACH.
--- NOTE | 2020-09-07 17:28 | NUR ---
DISCHARGE PT DISCHARGED TO [facility] FOR REHAB. THIS RN CALLED REPORT TO ROLANDO TALBOT. PT TRANSFERRED TO [facility] VIA WHEELCHAIR/WHEELCHAIR VAN. BELONGINGS WITH [facility] AND PT.
[2020-09-08 16:11] LABS: A/G RATIO 0.8 (0.7-1.7); ALBUMIN 2.7 g/dL (2.9-4.4); ALPHA-1-GLOBULIN 0.4 g/dL (0.0-0.4); ALPHA-2-GLOBULIN 0.8 g/dL (0.4-1.0); BETA GLOBULIN 0.7 g/dL (0.7-1.3); GAMMA GLOBULIN 1.6 g/dL (0.4-1.8); GLOBULIN, TOTAL 3.5 g/dL (2.2-3.9); IMMUNOGLOBULIN A, QN, SERUM 123 mg/dL (64-422); IMMUNOGLOBULIN G, QN, SERUM 1683 mg/dL (586-1602); IMMUNOGLOBULIN M, QN, SERUM 84 mg/dL (26-217); M-SPIKE 0.9 g/dL (Not Observed); PROTEIN, TOTAL, SERUM 6.2 g/dL (6.0-8.5)
[2020-09-11 15:11] LABS: A/G RATIO 0.8 (0.7-1.7); ALBUMIN 2.6 g/dL (2.9-4.4); ALPHA-1-GLOBULIN 0.3 g/dL (0.0-0.4); ALPHA-2-GLOBULIN 0.8 g/dL (0.4-1.0); BETA GLOBULIN 0.7 g/dL (0.7-1.3); GAMMA GLOBULIN 1.6 g/dL (0.4-1.8); GLOBULIN, TOTAL 3.4 g/dL (2.2-3.9); IMMUNOGLOBULIN A, QN, SERUM 121 mg/dL (64-422); IMMUNOGLOBULIN G, QN, SERUM 1656 mg/dL (586-1602); IMMUNOGLOBULIN M, QN, SERUM 80 mg/dL (26-217)
== END 2020-09-07 16:40 | DRG 64 ==
LOC: ER 11:22 → MEDS 13:30
PROVIDERS: Internal Medicine; Nurse Practitioner Acute Care; Physician Assistant; ADMIT Hospitalist
DX: I63.531 Cerebral infarction due to unspecified occlusion or stenosis of right posterior cerebral artery (principal); G93.41 Metabolic encephalopathy; G81.94 Hemiplegia, unspecified affecting left nondominant side; N17.9 Acute kidney failure, unspecified; E87.2 Acidosis; Z66 Do not resuscitate; H53.8 Other visual disturbances; R29.6 Repeated falls; F17.210 Nicotine dependence, cigarettes, uncomplicated; K21.9 Gastro-esophageal reflux disease without esophagitis; I35.0 Nonrheumatic aortic (valve) stenosis; I16.0 Hypertensive urgency; E87.6 Hypokalemia; I12.9 Hypertensive chronic kidney disease with stage 1 through stage 4 chronic kidney disease, or unspecified chronic kidney disease; I73.9 Peripheral vascular disease, unspecified; H91.90 Unspecified hearing loss, unspecified ear; R33.8 Other retention of urine; N18.30 Chronic kidney disease, stage 3 unspecified; I65.21 Occlusion and stenosis of right carotid artery; I27.20 Pulmonary hypertension, unspecified; Z20.822 Contact with and (suspected) exposure to COVID-19; D63.1 Anemia in chronic kidney disease; J44.9 Chronic obstructive pulmonary disease, unspecified; T50.8X5A Adverse effect of diagnostic agents, initial encounter; Y92.239 Unspecified place in hospital as the place of occurrence of the external cause; Z88.5 Allergy status to narcotic agent; Z88.6 Allergy status to analgesic agent; Z90.49 Acquired absence of other specified parts of digestive tract; Z98.890 Other specified postprocedural states; Z71.6 Tobacco abuse counseling; Z79.82 Long term (current) use of aspirin; Z79.899 Other long term (current) drug therapy; Z90.710 Acquired absence of both cervix and uterus; Z85.41 Personal history of malignant neoplasm of cervix uteri; Z95.820 Peripheral vascular angioplasty status with implants and grafts
CPT/HCPCS: 36415; 51702; 70450; 70496; 70498; 76770; 80048; 80053; 80069; 81001; 82728; 82784; 83540; 83550; 83880; 84165; 84443; 84550; 85025; 85610; 86334; 87086; 87147; 92526; 92610; 93005; 93010; 93246; 93306; 93880; 94640; 94760; 97110; 97116; 97129; 97162; 97164; 97166; 97530; 97535; 99285-25; A9270; G0480; J0360; J1650; J7030; J7120; Q9967; U0004

== ENCOUNTER → 2020-10-26 | Outpatient (CLI) | payer MEDICARE ==
[~2020-10-26] MED LIST changes: +AMLO10 PO; +ATOR40TA PO; +Acetaminophen325 M1 PO; +BISA10S PR; +DULCOLAX400 MG/5 M PO; +HYDRA25 PO; +LOSA25 PO; +Lopressor 50 mg50 MG PO; +Nicoderm Cq1 EAC1 TOP; +ONDA4ODT PO; +Plavix75 MG PO; +SENN187 PO; +SODBIC650 PO; +TRANSDERM-SCOP1 EAC1 TD
[2020-10-26 08:50] LABS: Source, Urine Clean Catch
[2020-10-26 08:55] LABS: Bilirubin, Urine Neg (Neg); Blood, Urine 4+ (Neg); Glucose Qualitative, Urine Neg (Neg); Ketones, Urine Neg (Neg); Leukocyte Esterase, Urine Neg (Neg); Nitrite, Urine Neg (Neg); Protein, Urine 1+ (Neg); Specific Gravity, Urine 1.015 (1.003-1.022); Urobilinogen, Urine NORM (Normal)
[2020-10-26 08:57] LABS: BASOPHILS ABSOLUTE AUTO 0.08 K/mm3 (0.00-0.23); BASOPHILS PERCENT AUTO 1 % (0-2); EOSINOPHILS ABSOLUTE AUTO 0.02 K/mm3 (0.00-0.68); EOSINOPHILS PERCENT AUTO 0 % (0-6); Hematocrit 32.3 % (33.0-51.0); Hemoglobin 10.5 g/dL (11.5-16.0); IMMATURE GRAN ABSOLUTE AUTO 0.02 K/mm3 (0.00-0.10); IMMATURE GRAN PERCENT AUTO 0 % (0-1); LYMPHOCYTES ABSOLUTE AUTO 1.37 K/mm3 (0.84-5.20); LYMPHOCYTES PERCENT AUTO 16 % (21-46); MONOCYTES ABSOLUTE AUTO 0.38 K/mm3 (0.16-1.47); MONOCYTES PERCENT AUTO 4 % (4-13); Mean Corpuscular HGB 30.6 pg (26.0-34.0); Mean Corpuscular HGB Conc 32.5 g/dL (31.5-36.5); Mean Corpuscular Volume 94 fL (80-100); NEUTROPHILS ABSOLUTE AUTO 6.85 K/mm3 (1.96-9.15); NEUTROPHILS PERCENT AUTO 79 % (41-73); Platelet Count 192 K/mm3 (150-400); RDW Coefficient Variation 15.7 % (11.7-14.2); Red Blood Cell Count 3.43 M/mm3 (3.80-5.20); White Blood Cell Count 8.72 K/mm3 (4.00-11.30)
[2020-10-26 09:07] LABS: Appearance, Urine Clear (Clear); Color, Urine Yellow (P-Yellow)
[2020-10-26 09:08] LABS: Bacteria Not Seen /hpf; Squamous Epithelial Cells Not Seen /hpf (Few); White Blood Cells, Urine Not Seen /hpf (0-5)
[2020-10-26 09:18] LABS: Bun/Creatinine Ratio 32.8 (12.0-20.0); Calcium, Blood 9.2 mg/dL (8.5-10.1); Creatinine, Blood 1.31 mg/dL (0.40-1.00)
== END ==
LOC: LAB UVN 07:40 → EDSTATUS 13:27
PROVIDERS: Hospitalist
DX: J44.9 Chronic obstructive pulmonary disease, unspecified (principal); D63.1 Anemia in chronic kidney disease; E87.2 Acidosis; E87.6 Hypokalemia; N17.8 Other acute kidney failure; I10 Essential (primary) hypertension; Z88.5 Allergy status to narcotic agent; Z88.6 Allergy status to analgesic agent
CPT/HCPCS: 80048; 81001; 85025; 87086

== ENCOUNTER 2020-10-27 02:53 | Inpatient (IN) | payer MEDICARE ==
[~2020-10-27] VITALS: Ht 162.6 cm; Wt 54.8 kg
[~2020-10-27 02:53] MED LIST changes: -BISA10S PR; -DULCOLAX400 MG/5 M PO; -LOSA25 PO; -ONDA4ODT PO; -SENN187 PO; -TRANSDERM-SCOP1 EAC1 TD
[2020-10-27 03:43] LABS: Source, Urine Catheter
[2020-10-27 03:47] LABS: Appearance, Urine Clear (Clear); Bilirubin, Urine Neg (Neg); Blood, Urine 4+ (Neg); Color, Urine Yellow (P-Yellow); Glucose Qualitative, Urine Neg (Neg); Ketones, Urine Neg (Neg); Leukocyte Esterase, Urine 3+ (Neg); Nitrite, Urine Neg (Neg); Protein, Urine 2+ (Neg); Specific Gravity, Urine 1.015 (1.003-1.022); Urobilinogen, Urine NORM (Normal)
[2020-10-27 03:51] LABS: BASOPHILS ABSOLUTE AUTO 0.08 K/mm3 (0.00-0.23); BASOPHILS PERCENT AUTO 1 % (0-2); EOSINOPHILS ABSOLUTE AUTO 0.01 K/mm3 (0.00-0.68); EOSINOPHILS PERCENT AUTO 0 % (0-6); Hematocrit 35.9 % (33.0-51.0); Hemoglobin 11.8 g/dL (11.5-16.0); IMMATURE GRAN ABSOLUTE AUTO 0.06 K/mm3 (0.00-0.10); IMMATURE GRAN PERCENT AUTO 1 % (0-1); LYMPHOCYTES ABSOLUTE AUTO 1.87 K/mm3 (0.84-5.20); LYMPHOCYTES PERCENT AUTO 18 % (21-46); MONOCYTES ABSOLUTE AUTO 0.75 K/mm3 (0.16-1.47); MONOCYTES PERCENT AUTO 7 % (4-13); Mean Corpuscular HGB 30.4 pg (26.0-34.0); Mean Corpuscular HGB Conc 32.9 g/dL (31.5-36.5); Mean Corpuscular Volume 93 fL (80-100); Mean Platelet Volume 10.2 fL (9.1-12.4); NEUTROPHILS ABSOLUTE AUTO 7.77 K/mm3 (1.96-9.15); NEUTROPHILS PERCENT AUTO 74 % (41-73); Platelet Count 214 K/mm3 (150-400); RDW Coefficient Variation 15.8 % (11.7-14.2); Red Blood Cell Count 3.88 M/mm3 (3.80-5.20); White Blood Cell Count 10.54 K/mm3 (4.00-11.30)
[2020-10-27 03:53] LABS: Bacteria Mod /hpf; Renal Epithelial Few /hpf (0-Rare); Squamous Epithelial Cells Not Seen /hpf (Few)
[2020-10-27 03:54] LABS: Hyaline Casts 0-2 /lpf (0-2)
[2020-10-27 04:10] LABS: Albumin, Blood 3.4 g/dL (3.4-5.0); Albumin/Globulin Ratio 0.7 (0.8-1.8); Bilirubin, Total 0.5 mg/dL (0.1-1.0); Bun/Creatinine Ratio 28.6 (12.0-20.0); Creatinine, Blood 1.12 mg/dL (0.40-1.00); Globulin, Blood 5.1 g/dL (2.2-4.0); Potassium, Blood 5.2 mmol/L (3.5-5.5); Total Protein, Blood 8.5 g/dL (6.4-8.2); Troponin I 0.049 ng/mL (0.000-0.040)
[2020-10-27] MEDS ORDERED: LOSA25 PO (15:25)
[2020-10-27] MEDS ORDERED: SENN187 PO (15:26)
[2020-10-27] MEDS ORDERED: BISA10S PR (15:28)
[2020-10-27] MEDS ORDERED: DULCOLAX400 MG/5 M PO (15:29)
--- NOTE | 2020-10-27 16:52 | NUR ---
SHIFT SUMMARY PT IS AO TO SELF AND RESPONDS TO VERBAL STIMULI. PT C/O PAIN WITH BP CHECKS AND MOVEMENT. PT REFUSES REPOSITIONING. PT DENIES N/V, SOB. TROPONINS ELEVATED. PT IS NON-AMBLATORY AT BASELINE. PT EVALUATED BY ST AND IS TO REMAIN NPO. NO PROCEDURES DONE THIS SHIFT. PLAN IS TO TREND TROPONINS AND MONITOR MENTAL STATUS WITH UTI. PT DID NOT HAVE VISITORS THIS SHIFT. PT IS IN BED, ALARM ON, LOW POSITION WITH CALL LIGHT IN REACH.
[2020-10-28 05:16] LABS: BASOPHILS ABSOLUTE AUTO 0.09 K/mm3 (0.00-0.23); BASOPHILS PERCENT AUTO 1 % (0-2); EOSINOPHILS ABSOLUTE AUTO 0.03 K/mm3 (0.00-0.68); EOSINOPHILS PERCENT AUTO 0 % (0-6); Hematocrit 34.9 % (33.0-51.0); Hemoglobin 11.4 g/dL (11.5-16.0); IMMATURE GRAN ABSOLUTE AUTO 0.05 K/mm3 (0.00-0.10); IMMATURE GRAN PERCENT AUTO 1 % (0-1); LYMPHOCYTES ABSOLUTE AUTO 2.17 K/mm3 (0.84-5.20); LYMPHOCYTES PERCENT AUTO 24 % (21-46); MONOCYTES ABSOLUTE AUTO 0.72 K/mm3 (0.16-1.47); MONOCYTES PERCENT AUTO 8 % (4-13); Mean Corpuscular HGB 30.6 pg (26.0-34.0); Mean Corpuscular HGB Conc 32.7 g/dL (31.5-36.5); Mean Corpuscular Volume 94 fL (80-100); Mean Platelet Volume 10.4 fL (9.1-12.4); NEUTROPHILS PERCENT AUTO 66 % (41-73); Platelet Count 201 K/mm3 (150-400); RDW Coefficient Variation 15.9 % (11.7-14.2); RDW Standard Deviation 54.7 fL (35.1-46.3); Red Blood Cell Count 3.73 M/mm3 (3.80-5.20); White Blood Cell Count 8.96 K/mm3 (4.00-11.30)
[2020-10-28 05:41] LABS: Albumin/Globulin Ratio 0.7 (0.8-1.8); Bilirubin, Total 0.4 mg/dL (0.1-1.0); Bun/Creatinine Ratio 24.1 (12.0-20.0); Calcium, Blood 8.6 mg/dL (8.5-10.1); Creatinine, Blood 1.08 mg/dL (0.40-1.00); Globulin, Blood 4.5 g/dL (2.2-4.0); Potassium, Blood 4.4 mmol/L (3.5-5.5); Total Protein, Blood 7.5 g/dL (6.4-8.2)
--- NOTE | 2020-10-28 05:47 | NUR ---
SHIFT SUMMARY PT IS AN 85 Y/O FEMALE, ADMITTED FOR AMS. SHE IS A&O X SELF ONLY, VERY CONFUSED, UNABLE TO ANSWER QUESTIONS. PT YELLS OUT WHEN TOUCHED OR MOVED. NO S/S OF ACUTE PAIN, NAUSEA OR DISTRESS. VALE IN PLACE, PATENT AND DRAINING YELLOW URINE. BP ELEVATED, THOUGH PT GETS AGITATED WHEN BP TAKEN. TELE SHOWED ST IN THE 100S. VITAL SIGNS OTHERWISE STABLE. NO ACUTE CHANGES IN PT CONDITION NOTED DURING THE NIGHT. WILL CONTINUE TO MONITOR AND TREAT PER EMAR UNTIL HAND OFF TO DAY SHIFT RN.
--- NOTE | 2020-10-28 18:44 | NUR ---
SHIFT SUMMARY PT IS AOX2-3 WITH CONFUSION. PT SPEECH IS MORE APPROPRIATE THIS SHIFT AND LESS GARBLED. PT MEDICATED FOR HTN WITH PRN HYDRALAZINE X1 THIS SHIFT. PT EVALUATED BY ST AND CLEARED FOR ICE CHIPS IF AWAKE ENOUGH, BUT REMAINS NPO. PT HAD MULTIPLE INCONTINENT, SOFT BMS THIS SHIFT. PT TELE DC'D. PT'S DAUGHTER IN TO VISIT THIS SHIFT. PT IS IN BED, ALARM ON, LOW POSITION.
--- NOTE | 2020-10-29 06:25 | NUR ---
SHIFT SUMMARY PT IS AN 85 Y/O FEMALE, ADMITTED FOR AMS. SHE IS A&O X SELF ONLY, WITH SOME MOMENTS OF CLEAR SPEECH AND EPISODES OF GARBLED AND NONSENSICAL SPEECH. PT MOANS FREQUENTLY WHEN AWAKE. SHE WAS MEDICATED FOR ONE EPISODE OF NAUSEA AND EMESIS. NO COMPLAINTS OR S/S OF PAIN OR OTHER DISTRESS. PT HR INTERMITTENTLY TACHY, IN THE 100-110S. VITAL SIGNS OTHERSWISE STABLE. VALE IN PLACE, PATENT AND DRAINING YELLOW URINE. NO OTHER ACUTE CHANGES IN PT CONDITION NOTED DURING THE NIGHT. WILL CONTINUE TO MONITOR AND TREAT PER EMAR UNTIL HAND OFF TO DAY SHIFT RN.
[2020-10-29 09:19] LABS: BASOPHILS ABSOLUTE AUTO 0.06 K/mm3 (0.00-0.23); BASOPHILS PERCENT AUTO 0 % (0-2); EOSINOPHILS PERCENT AUTO 0 % (0-6); Hematocrit 39.3 % (33.0-51.0); Hemoglobin 12.9 g/dL (11.5-16.0); IMMATURE GRAN ABSOLUTE AUTO 0.07 K/mm3 (0.00-0.10); IMMATURE GRAN PERCENT AUTO 1 % (0-1); LYMPHOCYTES ABSOLUTE AUTO 0.67 K/mm3 (0.84-5.20); LYMPHOCYTES PERCENT AUTO 5 % (21-46); MONOCYTES PERCENT AUTO 3 % (4-13); Mean Corpuscular HGB 30.9 pg (26.0-34.0); Mean Corpuscular HGB Conc 32.8 g/dL (31.5-36.5); Mean Corpuscular Volume 94 fL (80-100); Mean Platelet Volume 10.7 fL (9.1-12.4); NEUTROPHILS PERCENT AUTO 92 % (41-73); Platelet Count 218 K/mm3 (150-400); RDW Standard Deviation 55.4 fL (35.1-46.3); Red Blood Cell Count 4.17 M/mm3 (3.80-5.20)
[2020-10-29 09:47] LABS: Albumin, Blood 3.6 g/dL (3.4-5.0); Albumin/Globulin Ratio 0.7 (0.8-1.8); Bilirubin, Total 0.5 mg/dL (0.1-1.0); Bun/Creatinine Ratio 24.4 (12.0-20.0); Creatinine, Blood 1.23 mg/dL (0.40-1.00); Total Protein, Blood 8.6 g/dL (6.4-8.2)
[2020-10-29 15:01] LABS: Free Thyroxine 1.07 ng/dL (0.70-1.60)
[2020-10-29 15:03] LABS: Thyroid Stimulating Hormone 3.7 uIU/mL (0.360-4.800)
--- NOTE | 2020-10-29 16:44 | NUR ---
SHIFT SUMMARY PT IS AO TO SELF AND FAMILY. PT MEDICATED WITH NM TYLENOL PER EMAR FOR PAIN BASED ON FLACC SCALE. PT MEDICATED FOR HTN PER EMAR X1. PT REMAINS NONAMBULATORY AT BASELINE AND HAS NOT WORKED WITH PT DUE TO NOT FOLLOWING DIRECTIONS. PT HAS GARBLED SPEECH THIS SHIFT WITH A FEW APPROPRIATE SENTENCES TOWARDS END OF SHIFT. PT'S SON AT BEDSIDE THIS WES. PT REMAINS NPO. PLAN IS FOR 2V CXR, THOUGH PT DOES NOT FOLLOW DIRECTIONS AT THIS TIME. PT IS IN BED, ALARM ON, LOW POSITION.
--- NOTE | 2020-10-30 06:12 | NUR ---
SHIFT SUMMARY PT IS AN 85 Y/O FEMALE, ADMITTED FOR AMS. SHE IS A&O X SELF, VERY CONFUSED WIHT PERIODS OF NONSENSICAL SPEECH AND DIFFICULTY FOLLOWING DIRECTIONS. PT CRIES OUT AND MOANS WHENEVER TOUCHED OR MOVED. PT IS NPO EXCEPT FOR ICE CHIPS D/T SWALLOWING DIFFICULTIES PER ST, AND IS ON 1/2 NS @ 75 ML/HR. HR IS TACHY IN THE 100-120S. VITAL SIGNS STABLE. NO S/S OF PAIN, NAUSEA OR SOB. NO ACUTE CHANGES IN PT CONDITION NOTED DURING THE NIGHT. WILL CONTINUE TO MONITOR AND TREAT PER EMAR UNTIL HAND OFF TO DAY SHIFT RN.
[2020-10-30 08:31] LABS: BASOPHILS ABSOLUTE AUTO 0.03 K/mm3 (0.00-0.23); BASOPHILS PERCENT AUTO 0 % (0-2); EOSINOPHILS PERCENT AUTO 0 % (0-6); Hematocrit 36.6 % (33.0-51.0); Hemoglobin 11.9 g/dL (11.5-16.0); IMMATURE GRAN ABSOLUTE AUTO 0.09 K/mm3 (0.00-0.10); IMMATURE GRAN PERCENT AUTO 1 % (0-1); LYMPHOCYTES PERCENT AUTO 9 % (21-46); MONOCYTES ABSOLUTE AUTO 0.86 K/mm3 (0.16-1.47); MONOCYTES PERCENT AUTO 6 % (4-13); Mean Corpuscular HGB 30.4 pg (26.0-34.0); Mean Corpuscular HGB Conc 32.5 g/dL (31.5-36.5); Mean Corpuscular Volume 93 fL (80-100); Mean Platelet Volume 10.7 fL (9.1-12.4); NEUTROPHILS ABSOLUTE AUTO 12.88 K/mm3 (1.96-9.15); NEUTROPHILS PERCENT AUTO 85 % (41-73); Platelet Count 201 K/mm3 (150-400); RDW Coefficient Variation 16.4 % (11.7-14.2); RDW Standard Deviation 55.8 fL (35.1-46.3); Red Blood Cell Count 3.92 M/mm3 (3.80-5.20); White Blood Cell Count 15.16 K/mm3 (4.00-11.30)
[2020-10-30 08:52] LABS: Albumin, Blood 3.3 g/dL (3.4-5.0); Albumin/Globulin Ratio 0.7 (0.8-1.8); Bilirubin, Total 0.4 mg/dL (0.1-1.0); Calcium, Blood 8.6 mg/dL (8.5-10.1); Creatinine, Blood 1.37 mg/dL (0.40-1.00); Globulin, Blood 4.5 g/dL (2.2-4.0); Potassium, Blood 3.7 mmol/L (3.5-5.5); Total Protein, Blood 7.8 g/dL (6.4-8.2)
--- NOTE | 2020-10-30 18:29 | NUR ---
PATIENT IS ALERT. SHE IS ORIENTED TO FAMILY. SHE IS AFOGNAK. WAS NOT ABLE TO PARTICIPATE WITH ST, OT OR PT TODAY. PATIENT WAS MUCH MORE LIVELY ONCE HER SON ARRIVED. AVLE IS IN PLACE. ON RA. CONTINUOUS PULSE OX IS IN PLACE. Q2H TURNS. REPOSITION WITH PILLOWS. WILL CONTINUE TO MONITOR
--- NOTE | 2020-10-31 03:50 | NUR ---
85 year old female with pacemaker lt upper chest wall & zol to anterior chest continues on room air & is confused. She has garbled speech & can speak but does not answer questions readily. She removed bioxx finger probe several times & resists having it replaced. Resists having BP checked & tenses. She is NPO but because she was so hypertensive over 200 systolic & greater than 100 diastolic I did give oral as well as IV antihypertensive. She has head ct yesterday with rt sided CVA diagnosed. Does not follow commands, laughs intermittanly. [facility] Not cooperative with therapies, DC planning with family input needed.
[2020-10-31 08:42] LABS: BASOPHILS ABSOLUTE AUTO 0.03 K/mm3 (0.00-0.23); BASOPHILS PERCENT AUTO 0 % (0-2); EOSINOPHILS ABSOLUTE AUTO 0.02 K/mm3 (0.00-0.68); EOSINOPHILS PERCENT AUTO 0 % (0-6); Hematocrit 33.4 % (33.0-51.0); Hemoglobin 10.8 g/dL (11.5-16.0); IMMATURE GRAN ABSOLUTE AUTO 0.08 K/mm3 (0.00-0.10); IMMATURE GRAN PERCENT AUTO 1 % (0-1); LYMPHOCYTES ABSOLUTE AUTO 2.06 K/mm3 (0.84-5.20); LYMPHOCYTES PERCENT AUTO 19 % (21-46); MONOCYTES PERCENT AUTO 6 % (4-13); Mean Corpuscular HGB 30.6 pg (26.0-34.0); Mean Corpuscular HGB Conc 32.3 g/dL (31.5-36.5); Mean Corpuscular Volume 95 fL (80-100); Mean Platelet Volume 10.2 fL (9.1-12.4); NEUTROPHILS ABSOLUTE AUTO 8.01 K/mm3 (1.96-9.15); NEUTROPHILS PERCENT AUTO 74 % (41-73); Platelet Count 122 K/mm3 (150-400); RDW Coefficient Variation 16.6 % (11.7-14.2); RDW Standard Deviation 57.2 fL (35.1-46.3); Red Blood Cell Count 3.53 M/mm3 (3.80-5.20)
[2020-10-31 09:02] LABS: Albumin, Blood 3.2 g/dL (3.4-5.0); Albumin/Globulin Ratio 0.8 (0.8-1.8); Bilirubin, Total 0.4 mg/dL (0.1-1.0); Bun/Creatinine Ratio 26.1 (12.0-20.0); Calcium, Blood 8.5 mg/dL (8.5-10.1); Creatinine, Blood 1.15 mg/dL (0.40-1.00); Globulin, Blood 3.8 g/dL (2.2-4.0)
--- NOTE | 2020-10-31 12:41 | NUR ---
Spoke with Clayton Arndt and discussed case. Plan for Dr Bejarano to discuss with family goals of care at 1400. Palliative Care is requested during family meeting. Brief visit with Pt. Pt resting in bed with her eyes opened. Pt does not respond to verbal commands. Pt unable to track with her eyes. Ended visit to allow Pt to rest. Spoke with Pt's primary RN Mariah and discussed case. Plan: Family meeting at 1400 with flavia.
--- NOTE | 2020-10-31 15:05 | NUR ---
Family meeting in Pt's room with flavia this afternoon. Dr Bejarano, Drum Handler Yris, Primary RN Mariah, and this PC RN met with family. Dr Bejarano provides update and discusses current plan of care. Options discussed with family including current plan of care, G tube placement if Pt continues to be NPO, and hospice. Family reports Pt would not want feeding tube. Family reports they are leaning towards hospice and there biggest concern is placement. Family reports none are in a position to bring Pt home and provide adequate care for Pt. One of Pt's son starts speaking with Pt and Pt does awake. Pt does engage with family member. Other family members have not been able to get Pt to respond along with medical staff. Discussions continued and questions answered. Family will process information and discuss further at home regarding options. For now family would like to continue current plan of care. Palliative Care will remain available for supportive and therapeutic visits.
--- NOTE | 2020-10-31 16:49 | NUR ---
SHIFT SUMMARY NO ACUTE EVENTS THIS SHIFT. PT WAS NON-VERBAL THROUGH MOST OF SHIFT, WOULD NOT RESPOND TO VERBAL/PHSYICAL STIMULUS. PT WOULD OPEN EYES AND LOOK AROUND ROOM BUT NOT LOOK AT STAFF. PT IS STRICT NPO UNTIL SPEECH EVAL, PT WAS NON-REDIRECTABLE BY STAFF. PT'S FAMILY VISITED WITH NISHANT MARCANO RN AND CONNOR RN WITH PALLIATIVE PRESENT AT BEDSIDE TO DISCUSS GOALS AND PLAN OF TREATMENT. PT REMAINED NON-VERBAL AND LETHARGIC UNTIL ONE OF THE PATIENT'S SONS CAME TO BEDSIDE, SHE THEN WOKE UP AND STARTED MAKING LOGICAL STATEMENTS SUCH "I WOULD LIKE SOME WATER OR SODA" AND STARTED TO TRY TO GET UP OUT OF BED. AFTER FAMILY LEFT PT REMAINED LESS LETHARGIC, HOWEVER IS NO LONGER VERBAL. PT STARES IN ONE DIRECTION TOWARD WINDOW, DOES NOT RESPOND TO VISUAL STIMULUS FROM NURSING STAFF, SOMETIMES TO PHSYICAL/VERBAL STIMULUS.
[2020-11-01 07:09] LABS: BASOPHILS ABSOLUTE AUTO 0.04 K/mm3 (0.00-0.23); BASOPHILS PERCENT AUTO 1 % (0-2); EOSINOPHILS ABSOLUTE AUTO 0.06 K/mm3 (0.00-0.68); EOSINOPHILS PERCENT AUTO 1 % (0-6); Hemoglobin 9.7 g/dL (11.5-16.0); IMMATURE GRAN ABSOLUTE AUTO 0.06 K/mm3 (0.00-0.10); IMMATURE GRAN PERCENT AUTO 1 % (0-1); LYMPHOCYTES ABSOLUTE AUTO 1.98 K/mm3 (0.84-5.20); LYMPHOCYTES PERCENT AUTO 24 % (21-46); MONOCYTES ABSOLUTE AUTO 0.59 K/mm3 (0.16-1.47); MONOCYTES PERCENT AUTO 7 % (4-13); Mean Corpuscular HGB 31.3 pg (26.0-34.0); Mean Corpuscular HGB Conc 33.4 g/dL (31.5-36.5); Mean Corpuscular Volume 94 fL (80-100); Mean Platelet Volume 11.9 fL (9.1-12.4); NEUTROPHILS ABSOLUTE AUTO 5.38 K/mm3 (1.96-9.15); NEUTROPHILS PERCENT AUTO 66 % (41-73); Platelet Count 108 K/mm3 (150-400); RDW Coefficient Variation 16.5 % (11.7-14.2); RDW Standard Deviation 55.5 fL (35.1-46.3); White Blood Cell Count 8.11 K/mm3 (4.00-11.30)
[2020-11-01 07:15] LABS: Albumin, Blood 2.8 g/dL (3.4-5.0); Albumin/Globulin Ratio 0.8 (0.8-1.8); Bilirubin, Total 0.4 mg/dL (0.1-1.0); Bun/Creatinine Ratio 24.4 (12.0-20.0); Calcium, Blood 7.8 mg/dL (8.5-10.1); Creatinine, Blood 0.94 mg/dL (0.40-1.00); Globulin, Blood 3.7 g/dL (2.2-4.0); Potassium, Blood 3.4 mmol/L (3.5-5.5); Total Protein, Blood 6.5 g/dL (6.4-8.2)
--- NOTE | 2020-11-01 07:25 | NUR ---
Elderly Female with CVA last month & extension of CVA this admission continues with AMS, NPO with 1 administration of small oral meds in honey thick liquid sip. Speech garbled, loc variable. Room air, PT has mccullough cath with cleqr straw urine on IV Fluids D5 at 100 ml hr x 1.5 l. Dual chamber pacemaker & zio patch present upper chest.
--- NOTE | 2020-11-01 16:52 | NUR ---
SHIFT SUMMARY PT IS AO TO SELF, SOMETIMES SURROUNDINGS. PT DENIES PAIN, N/V, SOB. PT REMAINS ON BEDREST AND NONAMBULATORY AT BASELINE. PT DID NOT WORK WITH PT/OT THIS SHIFT. PT HAD ST EVAL AND UPGRADED TO PUREE DIET WITH FEEDING ASSIST. PT DID NOT HAVE ANY PROCEDURES THIS SHIFT. PT'S [id number] VISITED THIS WES. PLAN IS TO MONITOR COGNITIVE STATUS. PT IS IN BED, CALL LIGHT IN REACH, BED IN LOW POSITION.
--- NOTE | 2020-11-02 05:39 | NUR ---
PT has swallow eval & had puree diet with nectar thick liquids ordered. She only took 3 bites applesauce with meds crushed, She woke up acknowledged me at HS clearly said yes then has slept to rest of shift. On room air, PT continues hypertensive. Mcgregor patent drains sm amt of clear yellow urine. Has pacemaker & has ziopatch anterior chest. Does not use call stewart.
--- NOTE | 2020-11-02 17:23 | NUR ---
SHIFT SUMMARY PT IS AO TO SELF, STAFF, AND FAMILY. PT DENIES PAIN, N/V, SOB. PT IS BEDBOUND AT BASELINE. PT APPETITE IS GOOD THIS SHIFT. NO PROCEDURES DONE THIS SHIFT. PT'S DAUGHTER IN TO VISIT TODAY. PLAN IS FOR DC ON HOSPICE TO [facility]. PT IS IN BED, CALL LIGHT IN REACH, LOW POSITION WITH ALARM ON.
--- NOTE | 2020-11-03 04:57 | NUR ---
SHIFT SUMMARY: PT IS ALERT AND ORIENTED TO SELF ONLY. PT IS NOT ABLE TO AMBULATE, ON BEDREST, NO ATTEMPTS TO GET OUT OF BED OVERNIGHT. PT DID NOT USE HER CALL LIGHT. PT HAD VERY LITTLE URINE OUTPUT, BUT DID NOT HAVE ANY PO OR IV INTAKE. PT SHOWS NO S/S FOR PAIN, NAUSEA, VOMITING, OR SOB. PT WAS TOO LETHARGIC TO TAKE ANY ORAL MEDICATIONS, THEY WERE HELD. PT SLEPT THROUGHOUT THE NIGHT WHEN NOT DISTURBED. NO ACUTE CHANGES OR COMPLICATIONS THIS SHIFT. WILL CONTINUE TO MONITOR.
--- NOTE | 2020-11-03 16:01 | NUR ---
ALERT TO SELF. POOR FLUID INTAKE. DOES NOT APPEAR TO; BE SOB, IN ANY PAIN OR DISCOMFORT. WHEN D'C WILL GO TO [facility] ON HOSPICE. IV RUE PATENT. COOPERATIVE. UNLABORED RESPIRATIONS. MEDS CRUSHED IN APPLESAUCE WITH ADJUSTING THEM THIS AM. SLEEPING MOST OF SHIFT AND DOES NOT TRY TO GET OUT OF BED. WCTM
--- NOTE | 2020-11-04 05:50 | NUR ---
SHIFT SUMMARY: PT IS ALERT AND CONFUSED AT BASELINE. PT SLEEPING MOST OF THE NIGHT WHEN NOT DISTURBED. PT WAS ABLE TO WAKE UP TO TAKE MEDICATIONS WHOLE WITH APPLESAUCE. PT SHOWS NO S/S FOR PAIN, NAUSEA, VOMITING, OR SOB. AWAITING PLACEMENT ON HOSPICE. NO ACUTE CHANGES OR COMPLICATIONS.
--- NOTE | 2020-11-04 09:49 | NUR ---
Made a visit to Elizabeth this morning. She was asleep when breakfast arrived this morning, but awake at 0930. She is very AGDAAGUX, and is oriented to self. She was able to tell me she was hungry, and with total feeding assistance, she ate about 1/2 her breakfast, and let me know when she was full. She appears unable to visualize the food, but can see the spoon when directly in front of her. Placed call to POA to discuss pt's diet, and discuss comfort care measures, which pt currently isn't on, but may benefit from this.
--- NOTE | 2020-11-04 17:36 | NUR ---
Pt has refused lunch and dinner today. Pt is withdrawn and uninterested in interaction. She is in bed, she is looking out the window. She is only able to be pulled out of this starring reverie with loud voice cue and gentle shake of the shoulder. Spoke with Doris, palliative care. Pt is not on comfort care in the hospital, however, notes indicate that she is discharging to be on hospice. Pt had a surprised and disgusted face when taking crushed medications this morning. May consider discontinuing non-essental medications and reducing needle sticks would be beneficial. Pt not showing signs of being interested in human interaction at this time, continue supportive treatments per physician orders.
--- NOTE | 2020-11-05 05:20 | NUR ---
SUMMARY: PT ORIENTED TO SELF/PERSON BUT OTHERWISE SEEMS CONFUSED, FLAT AND WITHDRAWN. SHE SLEPT MOST OF NOCTE EXCEPT UPON WAKING FOR CARE/REPOSITIONING. SHE TOLERATED PILLS CRUSHED IN APPLESAUCE BUT LACKS APPETITE DESPITE ENCOURAGEMENT AND ATTEMPTS AT ORAL HYDRATION. SEROQUEL HELD FOR DROWSINESS. PT APPEARS COMFORTABLE AND DENIED ALL COMPLAINTS. VSS/AFEBRILE, NO ACUTE CHANGES. PLACEMENT PENDING. WCTM AND REPORT TO DAY RN.
--- NOTE | 2020-11-05 11:11 | NUR ---
Pt sleeping most of the time. When not asleep, she starres out the window. She is slow to respond, denies pain. No s/s of distress, still refusing to eat. Call placed to family members and messages left. Discussed with Dr. Ybarra. Pt would be appropriate for comfort care measures, especially since she is not wanting food. No urine output last night or so far today. Will continue to monitor for changes.
--- NOTE | 2020-11-06 02:21 | NUR ---
PT awake with some verbalizations. denies unmet needs.
--- NOTE | 2020-11-06 06:09 | NUR ---
PT on comfort measures has pacemaker with unknown function. She had ziopatch on midchest. Ziopatch at bedside. Removed powerglide, PT has pacemaker. Will notify [facility] of need to turn off pacemaker & to return zioPATCH
--- NOTE | 2020-11-06 08:00 | NUR ---
REPOSITIONED, ATTENDS CLEAN AND DRY. PT IS NOT RESPONDING VERBALLY BUT GROANS A BIT. PT APPEARS COMFORTABLE AND IN NO DISTRESS @ THIS TIME.
--- NOTE | 2020-11-06 12:33 | NUR ---
BED BATH COMPLETED, PT MORE RESPONSIVE AND AWAKE @ THIS. MOANING AND SAYING OUCH WITH MOVEMENT/ROLLING. 10 MG OF ROXONAL PROVIDED, PT ALSO BURPING, MEDS GIVEN FOR NAUSEA. REPOSITIONED AND ATTENDS CHANGED. X1 INCONT VOID. MEPILEX PLACED ON COCCYX FOR PREVENTION OF SKIN BREAKDOWN. SKIN LOOKS GOOD BESIDES SCATTERED BRUISING AND A COUPLE OF SKIN TEARS. PT APPEARS COMFORTABLE AT THIS TIME, STILL NOT WAKING UP ENOUGH FOR ORAL INTAKE. ORAL CARE COMPLETED AT THIS TIME WELL.
--- NOTE | 2020-11-06 12:53 | NUR ---
[facility]ADWICK GIVEN TO [facility] @ [facility], HANDED TO OFELIA @ THE [employer] [facility], SHE STATED THEY WOULD CALL THE OFFICE TO FIND OUT IF THE PATCH NEEDS TO BE SENT IN OR NOT c PT NOW BEING ON COMFORT CARE. STILL AWAITING ON WHAT IS TO BE DONE c PACEMAKER.
--- NOTE | 2020-11-06 17:08 | NUR ---
SHIFT SUMMARY PT REMAINS ON COMFORT CARE MEASURES, FAMILY CURRENTLY PRESENT IN ROOM. PT APPEARS COMFORTABLE, 10 MG ROXONAL PROVIDED PER EMAR AND CLINICAL JUDGEMENT WELL ANTINAUSEA MEDS. PT HAD NO ORAL INTAKE THIS SHIFT. SLEPT T/O MOST OF SHIFT BESIDES WAKING UP FOR PERIOD OF TIME DURING BED BATH. REPOSITIONED AND PERSONAL CARE PROVIDED Q2H AND PRN. X1 INCONT VOID. WILL REMAIN AVAILABLE TO PT AND FAMILY FOR REMAINDER OF SHIFT.
--- NOTE | 2020-11-06 19:16 | NUR ---
pt resting not non verbal signs of pain will continue to monitor.
--- NOTE | 2020-11-06 22:55 | NUR ---
PT resting quietly appears comfortable. Moving self in bed, room air, not talking or having oral intake. Does respond to voice. Skin warm plae dry. Continues on comfort care. Day RN reports Zio patch was returned to [facility]. No calls or vistors this shift observed. Reportedly Family was here on day shift.
--- NOTE | 2020-11-07 02:36 | NUR ---
elderly Female on comfort care expessed pain with repositioning & toileting, medicated with roxinol 20 mg sl await effect.
--- NOTE | 2020-11-07 14:21 | NUR ---
Nurse reporting some more aggitation today. At this time she is resting well. will monitor pt appears to be slowly changeing, plan is hospice tomorrow and discharge.
--- NOTE | 2020-11-07 17:01 | NUR ---
SHIFT SUMMARY MEDICATED TWICE FOR PAIN DUE RESTLESSNESS/FLAILING ARMS, AND GRIMACING THIS MORNING. RESTING WITH EYES CLOSED, FREE OF GRIMACE SINCE LAST DOSE OF ROXANOL THIS MORNING. RECIEVED CALL FROM [facility] THAT PATIENT WILL DISCHARGE TO THEIR FACILITY TOMORROW.
--- NOTE | 2020-11-08 06:13 | NUR ---
PT is more alert intermittantly & laughs often while awake. Medicated several times with roxinol 20 mg with helpful effect. DC on Hospice pending.
--- NOTE | 2020-11-08 07:54 | NUR ---
REPORT CALLED TO USHA AT [facility]. [id number] PICK-UP TIME PER RICH.
[2020-11-08] MEDS ORDERED: ONDA4ODT PO (08:00)
[2020-11-08] MEDS ORDERED: TRANSDERM-SCOP1 EAC1 TD (08:00)
--- NOTE | 2020-11-08 08:47 | NUR ---
DISCHARGED TO [facility] AT 0847. MEDICATED FOR PAIN PRIOR TO TRANSPORT.
== END 2020-11-08 08:46 | disposition hospice, home (50) | DRG 64 ==
LOC: ER 02:53 → MEDS 05:51 → ERHOLD 05:51 → MEDS 10:23
PROVIDERS: Emergency Medicine; Internal Medicine; Student in an Organized Health Care Education/Training Program; ADMIT Family Medicine
DX: I63.89 Other cerebral infarction (principal); G93.6 Cerebral edema; N39.0 Urinary tract infection, site not specified; I69.354 Hemiplegia and hemiparesis following cerebral infarction affecting left non-dominant side; E87.0 Hyperosmolality and hypernatremia; N17.9 Acute kidney failure, unspecified; G93.49 Other encephalopathy; I24.8 Other forms of acute ischemic heart disease; N18.9 Chronic kidney disease, unspecified; Z51.5 Encounter for palliative care; J44.9 Chronic obstructive pulmonary disease, unspecified; K21.9 Gastro-esophageal reflux disease without esophagitis; E78.5 Hyperlipidemia, unspecified; Z88.5 Allergy status to narcotic agent; Z88.8 Allergy status to other drugs, medicaments and biological substances; I73.9 Peripheral vascular disease, unspecified; Z90.49 Acquired absence of other specified parts of digestive tract; Z90.710 Acquired absence of both cervix and uterus; Z85.41 Personal history of malignant neoplasm of cervix uteri; Z66 Do not resuscitate; Z79.82 Long term (current) use of aspirin; Z79.899 Other long term (current) drug therapy; E86.0 Dehydration; N18.30 Chronic kidney disease, stage 3 unspecified; I12.9 Hypertensive chronic kidney disease with stage 1 through stage 4 chronic kidney disease, or unspecified chronic kidney disease; F03.90 Unspecified dementia, unspecified severity, without behavioral disturbance, psychotic disturbance, mood disturbance, and anxiety; R62.7 Adult failure to thrive; Z68.31 Body mass index [BMI] 31.0-31.9, adult
CPT/HCPCS: 36415; 70450; 71045; 71046; 80053; 81001; 83880; 84439; 84443; 84484; 85025; 85651; 87086; 92526; 92610; 93005; 93010; 94762; 96365; 99285-25; A9270; J0360; J0696; J1650; J2405; J3010; J7030; J7070